=== PATIENT | male | born 1990 | race Caucasian/White ===

== ENCOUNTER → 2017-05-14 | Outpatient (CLI) | payer OTHER | LOC: M.ULTRA 09:06 | DX: K81.9 Cholecystitis, unspecified (principal); R16.1 Splenomegaly, not elsewhere classified ==

== ENCOUNTER 2018-05-26 17:18 | Emergency (ER) | payer BC ==
[~2018-05-26] VITALS: Ht 175.3 cm; Wt 68.0 kg
[2018-05-26 18:16] LABS: ABSOLUTE LYMPHOCYTES 0.7 thou/uL (0.8-5.3); ABSOLUTE MONOCYTES 0.3 thou/uL (0.0-1.2); ABSOLUTE NEUTROPHILS 5.5 thou/uL (1.6-8.1); BASOPHILS 0.2 %; EOSINOPHILS 0.2 %; HEMATOCRIT 46.7 % (42.0-52.0); LYMPHOCYTES 10.5 %; MCH 30.6 pg (26.0-34.0); MCHC 34.2 g/dL (28.0-37.0); MCV 89.4 fL (80.0-100.0); MONOCYTES 4.8 %; MPV 10.1 fl. (7.2-11.1); NUCLEATED RBCS 0 /100WBC; PLATELET COUNT* 162 thou/uL (150-400); POLYS 84.3 %; RBC 5.23 mil/uL (4.50-6.00); RDW-CV 13.1 % (10.5-14.5); WBC 6.5 thou/uL (4.0-11.0)
[2018-05-26 18:29] LABS: APTT 29.6 Seconds (25.0-31.3); INR 1.1; PROTIME 11.4 Seconds (9.20-11.50)
[2018-05-26 18:34] LABS: ALBUMIN 4.5 g/dL (3.4-5.0); CALCIUM 9.3 mg/dL (8.5-10.1); CREATININE 0.9 mg/dL (0.6-1.3); TOTAL BILIRUBIN 0.8 mg/dL (<0.1-1.0); TOTAL PROTEIN 7.5 g/dL (6.4-8.2)
[2018-05-26] MEDS ORDERED: OMEPRAZOLE 20 M20 M1 PO (19:11)
[2018-05-26] MEDS ORDERED: PEPCID20 MG PO (19:11)
[2018-05-26 19:25] VITALS: BP 106/58
== END 2018-05-26 19:26 | disposition home or self-care (01) ==
LOC: M.ERS 17:18
PROVIDERS: Physician Assistant
DX: R19.7 Diarrhea, unspecified (principal); Z87.19 Personal history of other diseases of the digestive system; Z90.49 Acquired absence of other specified parts of digestive tract

== ENCOUNTER → 2019-08-16 | Outpatient (CLI) | payer BC ==
[~2019-08-16] MED LIST: OMEPRAZOLE 20 M20 M1 PO; PEPCID20 MG PO
--- NOTE | 2019-08-25 12:03 | SLEEP ---
[address] [address] SLEEP STUDY REPORT Name: MERCEDES DICKSON Room: [facility]#: [id number] Admission: 08/16/19 Attend Phys: Micheal Chapin DO Discharge: Date of : 89 Report #: [id number] THIS REPORT FOR: //name// CC: Micheal Chapin DO This study has been reviewed in its entirety by a board certified sleep specialist DATE OF SERVICE: 08/17/2019 HOME SLEEP STUDY REFERRING PHYSICIAN: Micheal Chapin DO. The patient is a 29-year-old who weighs 262 pounds with a BMI of 20.2. The patient's [place] score was 4. The patient underwent home sleep study performed at [facility]. Total recording time was 499 minutes. During the night study, the patient had 5 central apneas, 42 obstructive apneas, no mixed apneas and 2 hypopneas. The patient's AHI was 6 per hour with a supine AHI of 6.2 per hour. Nocturnal oximetry study revealed an average oxygen saturation of 96% with the lowest of 91%. Mean heart rate 55 beats per minute. IMPRESSION: 1. Mild obstructive sleep apnea at an apnea-hypopnea index of 6 per hour. 2. No clinically significant nocturnal hypoxia. RECOMMENDATIONS: 1. The patient has mild sleep apnea. If the patient has comorbid conditions or is clinically symptomatic, then the patient's sleep apnea can be treated with either CPAP versus oral appliance. 2. Avoid [employer] depressants. 3. Cautioned regarding driving until symptoms of sleep apnea resolve with above recommendations. <ELECTRONICALLY SIGNED> By: Harry Hoskins MD 08/25/19 1203 00 29Harry Hoskins MD /nt
== END ==
LOC: M.SLEEPLAB 08-11 20:00
PROVIDERS: ATTEND Family Medicine
DX: G47.33 Obstructive sleep apnea (adult) (pediatric) (principal)

== ENCOUNTER → 2019-09-18 | Outpatient (CLI) | payer BC | LOC: M.ULTRA 13:30 | PROVIDERS: ATTEND Family Medicine | DX: R59.0 Localized enlarged lymph nodes (principal); R59.1 Generalized enlarged lymph nodes ==